=== PATIENT | female | born 1975 | race Caucasian/White ===

== ENCOUNTER → 2016-11-29 | Outpatient (CLI) | payer BC ==
--- NOTE | 2016-11-29 15:30 | REP ---
Clinical: Cough . Comparison: 05/31/2013 . Technique: PA and lateral. Findings: The mediastinum and cardiac silhouette are normal. The lung medina are clear and without acute consolidation, effusion, or pneumothorax. The skeletal structures are intact and normal. Impression: 1. No acute cardiopulmonary process. Signed by Veto Bowen MD 11/29/2016 03:21 P
== END ==
LOC: M WUC 15:07
PROVIDERS: ATTEND Nurse Practitioner Family
DX: R05 Cough (principal)

== ENCOUNTER → 2018-12-12 | Outpatient (CLI) | payer BC ==
--- NOTE | 2018-12-13 00:57 | REP ---
Clinical: Fall with left shoulder pain . Technique: Internal rotation, external rotation, and Y view. Findings: No acute fracture or dislocation. The acromioclavicular and glenohumeral joints are intact. No periarticular calcifications or degenerative changes are appreciated. Sub acromial space is normal. Surrounding soft tissues are unremarkable. Impression: Normal left shoulder radiographs. Electronically Signed by Veto Bowen MD 12/13/2018 12:48 A
== END ==
LOC: M RAD 20:07
PROVIDERS: ATTEND Physician Assistant Medical
DX: S49.92XA Unspecified injury of left shoulder and upper arm, initial encounter (principal); X58.XXXA Exposure to other specified factors, initial encounter; Y92.89 Other specified places as the place of occurrence of the external cause

== ENCOUNTER → 2019-02-19 | Outpatient (REF) | payer BC ==
[2019-02-19 18:03] LABS: FREE T3 2.8 PG/ML (2.2-4.0)
[2019-02-19 18:04] LABS: THYROID PEROXIDASE ANTIBODY 34.2 U/ML (<60.0)
== END ==
LOC: M LAB REF 17:05
PROVIDERS: ATTEND Nurse Practitioner Family
DX: E04.1 Nontoxic single thyroid nodule (principal)

== ENCOUNTER 2019-07-09 08:18 | Outpatient (RCR) | payer BC | END 2019-07-10 | LOC: M PT 08:18 | PROVIDERS: ATTEND Nurse Practitioner Adult Health | DX: Z51.89 Encounter for other specified aftercare (principal); M25.511 Pain in right shoulder | CPT/HCPCS: 97010; 97110; 97140; 97162; G0283 ==

== ENCOUNTER 2019-08-02 15:43 | Outpatient (RCR) | payer BC | END 2019-08-10 | LOC: M PT 15:43 | PROVIDERS: ATTEND Nurse Practitioner Adult Health | DX: M25.511 Pain in right shoulder (principal); Z47.89 Encounter for other orthopedic aftercare ==

== ENCOUNTER → 2019-10-09 | Outpatient (CLI) | payer BC | LOC: M LABSMTC 09:57 | PROVIDERS: ATTEND Family Medicine | DX: Z11.59 Encounter for screening for other viral diseases (principal); Z20.828 Contact with and (suspected) exposure to other viral communicable diseases ==